=== PATIENT | female | born 1960 | race Hispanic/Latino ===

== ENCOUNTER → 2020-02-07 | Day surgery (SDC) | payer OTHER ==
[~2020-02-07] MED LIST: CALCIUM PO; FERROUS SULFAT325 M1 PO; LIDOCAINE HCL 2% LOCAL INJ 5 ML SDV VIAL INJ ONE; LISINOPRIL10 MG PO; OMEGA 3 1,0001 EACH PO; PROPOFOL IV EMULSION 10 MG/ML 20 ML VIAL ONE
[2020-02-07 07:46] VITALS: BP 108/59
== END | disposition home or self-care (01) ==
LOC: OR 05:57
PROVIDERS: ATTEND Internal Medicine Gastroenterology
DX: Z12.11 Encounter for screening for malignant neoplasm of colon (principal); K63.5 Polyp of colon; K29.50 Unspecified chronic gastritis without bleeding; I85.00 Esophageal varices without bleeding; K21.0 Gastro-esophageal reflux disease with esophagitis; K92.0 Hematemesis; K64.8 Other hemorrhoids; Z71.3 Dietary counseling and surveillance; E66.9 Obesity, unspecified; I10 Essential (primary) hypertension; E78.5 Hyperlipidemia, unspecified; M19.90 Unspecified osteoarthritis, unspecified site; Z01.810 Encounter for preprocedural cardiovascular examination; Z01.812 Encounter for preprocedural laboratory examination; Z68.33 Body mass index [BMI] 33.0-33.9, adult
CPT/HCPCS: 43239; 45380; 93005; J2001; J2704; U0002; 45378; 45384

== ENCOUNTER 2020-05-09 16:45 | Inpatient (IN) | payer OTHER ==
[~2020-05-09] VITALS: Ht 147.3 cm; Wt 74.1 kg
[~2020-05-09 16:45] MED LIST changes: -LIDOCAINE HCL 2% LOCAL INJ 5 ML SDV VIAL INJ ONE; -PROPOFOL IV EMULSION 10 MG/ML 20 ML VIAL ONE
[2020-05-09] MEDS ORDERED: ONDANSETRON HCL INJ 2MG/ML 2ML 2 MG/ML VIAL IV STA (17:20)
[2020-05-09] MEDS ORDERED: HYDROCHLOROTHIA25 MG (17:21)
[2020-05-09] MEDS ORDERED: ONDANSETRON HCL INJ 2MG/ML 2ML 2 MG/ML VIAL ONE (18:25)
[2020-05-09] MEDS ORDERED: PANTOPRAZOLE 40 MG 10ML VIAL IV STA (19:11)
[2020-05-09] MEDS ORDERED: PANTOPRAZOLE 40 MG 10ML VIAL ONE ×2 (19:35→22:17)
[2020-05-09 21:45] VITALS: BP 104/49
[2020-05-09 22:00] VITALS: BP 109/49
[2020-05-09] MEDS: SODIUM CHLORIDE 0.9% 1000ML 1,000 ML IV SCH (22:10)
[2020-05-09 23:18] VITALS: BP 109/49
[2020-05-10] VITALS (9 sets, daily range): BP systolic 92–129; BP diastolic 42–59
[2020-05-10] MEDS ORDERED: SODIUM CHLORIDE 0.9% 50ML 50 ML IV STA ×2 (00:11→05:16)
[2020-05-10] MEDS: PANTOPRAZOLE INJ 40 MG in SODIUM CHLORIDE 0.9% 50ML 50 ML IV SCH ×3 (00:19→05:27)
[2020-05-10] MEDS ORDERED: ACETAMINOPHEN 325 MG TAB PO PRN (02:15)
[2020-05-10] MEDS ORDERED: PLAQUENIL200 MG PO (02:42)
[2020-05-10] MEDS ORDERED: PANTOPRAZOLE 40 MG 10ML VIAL ONE (05:28)
[2020-05-10 06:38] LABS: BASOPHILS % 0.3 % (0.0-1.0); EOSINOPHILS # (AUTO) 0.2 (0.0-0.4); EOSINOPHILS % 2.5 % (0.0-6.0); LYMPHOCYTES # (AUTO) 2.3 (1.0-3.2); MEAN CORPUSCULAR HEMOGLOBIN 29.6 pg (28-32); MEAN CORPUSCULAR HGB CONC 32.3 g/dL (31-35); MEAN CORPUSCULAR VOLUME 91.6 fL (81-99); MONOCYTES # (AUTO) 0.5 (0.2-0.8); MONOCYTES % 8.3 % (4.4-11.3); NEUTROPHILS # (AUTO) 3.4 (2.1-6.9); NEUTROPHILS % 53.6 % (38.7-80.0); PLATELET COUNT 77 x10e3/uL (140-360); RED BLOOD COUNT 2.03 x10e6/uL (3.6-5.1); RED CELL DISTRIBUTION WIDTH 15.2 % (11.7-14.4)
[2020-05-10 06:53] LABS: HEMATOCRIT 18.6 % (34.2-44.1)
[2020-05-10 06:54] LABS: ANION GAP 8.8 mmol/L (8-16); BLOOD UREA NITROGEN 40 mg/dL (7-26); BUN/CREATININE RATIO 61 (6-25); CALCIUM 7.3 mg/dL (8.4-10.2); CARBON DIOXIDE 21 mmol/L (22-29); CHLORIDE 113 mmol/L (98-107); CREATININE, SERUM 0.66 mg/dL (0.57-1.11); EST GLOMERULAR FILTRATION RATE > 60 ML/MIN (60-); GLUCOSE 94 mg/dL (74-118); POTASSIUM 3.8 mmol/L (3.5-5.1); SODIUM 139 mmol/L (136-145)
[2020-05-10] MEDS ORDERED: SODIUM CHLORIDE 0.9% 250ML 250 ML IV ONE (11:30)
[2020-05-10] MEDS ORDERED: METRONIDAZOLE 500MG/NS 100ML 100 ML IV SCH (11:30)
[2020-05-10] MEDS: SODIUM CHLORIDE 0.9% 1000ML 1,000 ML IV SCH (11:40)
[2020-05-10] MEDS: PANTOPRAZOL 40MG/SOD CHL 0.9% 50 ML IV SCH ×2 (11:40→16:57)
[2020-05-10 12:12] LABS: THYROID STIMULATING HORMONE 0.775 uIU/mL (0.350-4.940)
[2020-05-10] MEDS: CEFTRIAXONE SOD 1 GM/NS 50 ML 50 ML IV SCH ×2 (12:15→21:43)
[2020-05-10] MEDS ORDERED: SODIUM CHLORIDE 0.9% 250ML 250 ML ONE ×3 (12:18→23:36)
[2020-05-10] MEDS: METRONIDAZOLE 500MG/NS 100ML 100 ML IV SCH ×2 (12:32→22:11)
[2020-05-10] MEDS: FUROSEMIDE INJ 10 MG/ML 2 ML VIAL IV PRN ×2 (16:57→21:52)
[2020-05-10] MEDS ORDERED: OCTREOTIDE ACETATE 0 ML ONE (23:25)
[2020-05-10] MEDS ORDERED: OCTREOTIDE ACETATE 2 ML ONE (23:26)
[2020-05-10] MEDS: OCTREOTIDE ACETATE 500 MCG in SODIUM CHLORIDE 0.9% 250ML 249 ML IV SCH (23:31)
[2020-05-11] VITALS (7 sets, daily range): BP systolic 101–122; BP diastolic 47–81
[2020-05-11] MEDS: SODIUM CHLORIDE 0.9% 1000ML 1,000 ML IV SCH ×2 (04:58→11:30)
[2020-05-11 06:08] LABS: BASOPHILS % 0.5 % (0.0-1.0); EOSINOPHILS # (AUTO) 0.2 (0.0-0.4); EOSINOPHILS % 4.4 % (0.0-6.0); HEMATOCRIT 26.5 % (34.2-44.1); HEMOGLOBIN 8.6 g/dL (12.0-16.0); LYMPHOCYTES # (AUTO) 1.4 (1.0-3.2); LYMPHOCYTES % 33.5 % (18.0-39.1); MEAN CORPUSCULAR HEMOGLOBIN 29.2 pg (28-32); MEAN CORPUSCULAR HGB CONC 32.5 g/dL (31-35); MEAN CORPUSCULAR VOLUME 89.8 fL (81-99); MONOCYTES # (AUTO) 0.4 (0.2-0.8); MONOCYTES % 8.9 % (4.4-11.3); NEUTROPHILS # (AUTO) 2.1 (2.1-6.9); NEUTROPHILS % 52.5 % (38.7-80.0); PLATELET COUNT 59 x10e3/uL (140-360); RED BLOOD COUNT 2.95 x10e6/uL (3.6-5.1)
[2020-05-11] MEDS: METRONIDAZOLE 500MG/NS 100ML 100 ML IV SCH ×3 (06:18→22:22)
[2020-05-11 07:00] LABS: ANION GAP 12.9 mmol/L (8-16); BLOOD UREA NITROGEN 18 mg/dL (7-26); BUN/CREATININE RATIO 26 (6-25); CALCIUM 7.8 mg/dL (8.4-10.2); CARBON DIOXIDE 21 mmol/L (22-29); CHLORIDE 110 mmol/L (98-107); EST GLOMERULAR FILTRATION RATE > 60 ML/MIN (60-); GLUCOSE 94 mg/dL (74-118); POTASSIUM 3.9 mmol/L (3.5-5.1); SODIUM 140 mmol/L (136-145)
[2020-05-11] MEDS: CEFTRIAXONE SOD 1 GM/NS 50 ML 50 ML IV SCH ×2 (08:19→21:14)
[2020-05-11] MEDS: PANTOPRAZOLE 40 MG 10ML VIAL IV SCH ×2 (08:19→17:18)
[2020-05-11] MEDS: OCTREOTIDE ACETATE 500 MCG in SODIUM CHLORIDE 0.9% 250ML 249 ML IV SCH (09:40)
[2020-05-11] MEDS ORDERED: MIDAZOLAM HCL 2 MG/2 ML VIAL ONE (12:48)
[2020-05-11] MEDS ORDERED: FENTANYL CITRATE/PF 100MCG/2 ML INJ ONE (12:48)
[2020-05-11] MEDS ORDERED: PROPOFOL IV EMULSION 10 MG/ML 20 ML VIAL ONE (19:21)
[2020-05-12] VITALS (8 sets, daily range): BP systolic 100–125; BP diastolic 52–67
[2020-05-12 04:58] LABS: BASOPHILS % 0.5 % (0.0-1.0); EOSINOPHILS # (AUTO) 0.2 (0.0-0.4); EOSINOPHILS % 6.1 % (0.0-6.0); HEMATOCRIT 25.4 % (34.2-44.1); HEMOGLOBIN 8.3 g/dL (12.0-16.0); LYMPHOCYTES # (AUTO) 1.3 (1.0-3.2); LYMPHOCYTES % 32.8 % (18.0-39.1); MEAN CORPUSCULAR HEMOGLOBIN 29.6 pg (28-32); MEAN CORPUSCULAR HGB CONC 32.7 g/dL (31-35); MEAN CORPUSCULAR VOLUME 90.7 fL (81-99); MONOCYTES # (AUTO) 0.3 (0.2-0.8); MONOCYTES % 7.4 % (4.4-11.3); NEUTROPHILS # (AUTO) 2.1 (2.1-6.9); NEUTROPHILS % 52.9 % (38.7-80.0); PLATELET COUNT 70 x10e3/uL (140-360)
[2020-05-12] MEDS: SODIUM CHLORIDE 0.9% 1000ML 1,000 ML IV SCH ×2 (05:01→14:33)
[2020-05-12] MEDS: METRONIDAZOLE 500MG/NS 100ML 100 ML IV SCH ×3 (05:38→22:11)
[2020-05-12] MEDS: PANTOPRAZOLE SOD 40 MG TABEC PO SCH (08:13)
[2020-05-12] MEDS: CEFTRIAXONE SOD 1 GM/NS 50 ML 50 ML IV SCH ×2 (08:13→21:27)
[2020-05-12 08:34] LABS: PLATELET ESTIMATE MARKEDLY DECREASED
[2020-05-12 08:35] LABS: PLATELET MORPHOLOGY COMMENT NORMAL
[2020-05-13] VITALS: BP 112/61
[2020-05-13 04:00] VITALS: BP 95/53
[2020-05-13] MEDS: SODIUM CHLORIDE 0.9% 1000ML 1,000 ML IV SCH (06:00)
[2020-05-13] MEDS: METRONIDAZOLE 500MG/NS 100ML 100 ML IV SCH ×3 (06:00→22:16)
[2020-05-13 07:38] VITALS: BP 142/74
[2020-05-13] MEDS: PANTOPRAZOLE SOD 40 MG TABEC PO SCH (08:04)
[2020-05-13] MEDS: CEFTRIAXONE SOD 1 GM/NS 50 ML 50 ML IV SCH ×2 (08:04→20:39)
[2020-05-13 10:32] LABS: HEMATOCRIT 27.4 % (34.2-44.1); HEMOGLOBIN 8.8 g/dL (12.0-16.0)
[2020-05-13 15:44] VITALS: BP 140/63
[2020-05-13 20:00] VITALS: BP 115/58
[2020-05-13 20:40] VITALS: BP 115/58
[2020-05-14] VITALS: BP 118/60
[2020-05-14 04:00] VITALS: BP 119/63
[2020-05-14 05:05] LABS: HEMATOCRIT 28.4 % (34.2-44.1); HEMOGLOBIN 9.1 g/dL (12.0-16.0)
[2020-05-14] MEDS: METRONIDAZOLE 500MG/NS 100ML 100 ML IV SCH (06:32)
[2020-05-14 08:44] VITALS: BP 121/54
[2020-05-14] MEDS: PANTOPRAZOLE SOD 40 MG TABEC PO SCH (09:00)
[2020-05-14] MEDS: CEFTRIAXONE SOD 1 GM/NS 50 ML 50 ML IV SCH (09:00)
[2020-05-14 09:01] VITALS: BP 121/54
[2020-05-14 11:23] VITALS: BP 117/66
== END 2020-05-14 11:32 | disposition home or self-care (01) | DRG 432 ==
LOC: FSED 16:50 → ERHOLD 19:29 → MED/SURG3 21:45 → IMCU 05-10 22:35
PROVIDERS: ADMIT Internal Medicine; ATTEND Internal Medicine
PROC: 30233N1 Transfusion of Nonautologous Red Blood Cells into Peripheral Vein, Percutaneous Approach (ICD-10-PCS; 2020-05-11)
PROC: 0DB78ZX Excision of Stomach, Pylorus, Via Natural or Artificial Opening Endoscopic, Diagnostic (ICD-10-PCS; principal; 2020-05-11 18:00)
DX: K74.60 Unspecified cirrhosis of liver (principal); K29.71 Gastritis, unspecified, with bleeding; K76.6 Portal hypertension; K55.9 Vascular disorder of intestine, unspecified; A09 Infectious gastroenteritis and colitis, unspecified; D62 Acute posthemorrhagic anemia; I85.10 Secondary esophageal varices without bleeding; K31.89 Other diseases of stomach and duodenum; D64.9 Anemia, unspecified; D69.6 Thrombocytopenia, unspecified; K46.9 Unspecified abdominal hernia without obstruction or gangrene; K44.9 Diaphragmatic hernia without obstruction or gangrene; K29.80 Duodenitis without bleeding; K22.2 Esophageal obstruction; M32.9 Systemic lupus erythematosus, unspecified; D50.9 Iron deficiency anemia, unspecified
CPT/HCPCS: 36415; 43239; 71046; 74176; 80048; 80076; 81003; 82270; 82607; 82746; 83540; 84443; 84466; 85014; 85018; 85025; 85045; 86850; 86900; 86920; 88305; 88312; 99284; J0696; J1940; J2250; J2353; J2405; J3010; J7030; J7050; P9016; U0002

== ENCOUNTER 2020-11-23 17:35 | Emergency (ER) | payer MEDICARE ==
[~2020-11-23] VITALS: Ht 147.3 cm; Wt 74.8 kg
[~2020-11-23 17:35] MED LIST changes: +HYDROCHLOROTHIA25 MG; +PLAQUENIL200 MG PO
[2020-11-23] MEDS ORDERED: ONDANSETRON HCL INJ 2MG/ML 2ML 2 MG/ML VIAL IV STA (18:20)
[2020-11-23] MEDS ORDERED: ONDANSETRON HCL INJ 2MG/ML 2ML 2 MG/ML VIAL ONE (18:34)
[2020-11-23 18:51] VITALS: BP 111/74
== END 2020-11-23 18:54 | disposition home or self-care (01) ==
LOC: FSED 17:55
DX: R53.1 Weakness (principal); R11.0 Nausea; D64.9 Anemia, unspecified; I10 Essential (primary) hypertension; M32.9 Systemic lupus erythematosus, unspecified; K74.60 Unspecified cirrhosis of liver; E66.9 Obesity, unspecified
CPT/HCPCS: 80048; 80076; 81003; 85025; 96374; 99284; J2405

== ENCOUNTER 2021-01-12 13:40 | Inpatient (IN) | payer OTHER ==
[~2021-01-12] VITALS: Ht 149.9 cm; Wt 74.5 kg
[2021-01-12] MEDS ORDERED: FAMOTIDINE20 MG PO (13:58)
[2021-01-12] MEDS ORDERED: VITAMIN C500 MG PO (13:58)
[2021-01-12] MEDS ORDERED: MULTI-VITAMIN1 EACH PO (13:58)
[2021-01-12] MEDS ORDERED: SODIUM CHLORIDE 0.9% 1000ML 1,000 ML IV STA (14:00)
[2021-01-12] MEDS ORDERED: CEFTRIAXONE 1 GM VIAL IV ONE (14:00)
[2021-01-12] MEDS ORDERED: CEFTRIAXONE 1 GM in SODIUM CHLORIDE 0.9% 50ML 50 ML IV ONE (14:15)
[2021-01-12] MEDS ORDERED: PHYTONADIONE 10 MG/ML AMP SC ONE (14:15)
[2021-01-12] MEDS ORDERED: OCTREOTIDE ACETATE 0.05 MG/ML AMP IV ONE ×2 (14:15→20:45)
[2021-01-12] MEDS ORDERED: ONDANSETRON HCL INJ 2MG/ML 2ML 2 MG/ML VIAL ONE (14:20)
[2021-01-12] MEDS: SODIUM CHLORIDE 0.9% 1000ML 1,000 ML IV SCH ×2 (14:20→17:45)
[2021-01-12] MEDS ORDERED: SODIUM CHLORIDE 0.9% 1000ML 1,000 ML ONE ×2 (14:20→15:43)
[2021-01-12] MEDS: ONDANSETRON HCL INJ 2MG/ML 2ML 2 MG/ML VIAL IV PRN ×2 (14:20→20:58)
[2021-01-12] MEDS ORDERED: CEFTRIAXONE 1 GM VIAL ONE (14:20)
[2021-01-12] MEDS ORDERED: OCTREOTIDE ACETATE 500 MCG in SODIUM CHLORIDE 0.9% 250ML 250 ML IV ONE (14:45)
[2021-01-12] MEDS ORDERED: PHYTONADIONE 10MG/ML 1 ML ONE (14:49)
[2021-01-12 15:41] LABS: HEMATOCRIT 29.4 % (34.2-44.1); HEMOGLOBIN 9.4 g/dL (12.0-16.0)
[2021-01-12] MEDS ORDERED: PROMETHAZINE HCL (IM) 25 MG/ML VIAL IM ONE (15:47)
[2021-01-12] MEDS ORDERED: PROMETHAZINE 12.5MG/ NACL 0.9% 12.5 MG/50 ML BAG IV ONE (16:00)
[2021-01-12 17:41] VITALS: BP 118/60
[2021-01-12 17:49] VITALS: BP 118/60
[2021-01-12 18:01] VITALS: BP 118/60
[2021-01-12 20:00] VITALS: BP 118/52
[2021-01-12 21:00] VITALS: BP 118/52
[2021-01-12] MEDS ORDERED: TRAMADOL HCL 50 MG TAB PO PRN (21:30)
[2021-01-12] MEDS: OCTREOTIDE ACETATE 500 MCG in SODIUM CHLORIDE 0.9% 250ML 250 ML IV SCH (21:30)
[2021-01-12] MEDS: Pantoprazole IV 40 MG in SODIUM CHLORIDE 0.9% 50ML 50 ML IV SCH (23:16)
[2021-01-13] VITALS (9 sets, daily range): BP systolic 106–119; BP diastolic 40–80
[2021-01-13] MEDS: Pantoprazole IV 40 MG in SODIUM CHLORIDE 0.9% 50ML 50 ML IV SCH ×3 (04:10→14:58)
[2021-01-13 06:33] LABS: BASOPHILS % 0.3 % (0.0-1.0); EOSINOPHILS # (AUTO) 0.1 (0.0-0.4); EOSINOPHILS % 3.4 % (0.0-6.0); HEMATOCRIT 24.3 % (34.2-44.1); LYMPHOCYTES # (AUTO) 1.3 (1.0-3.2); MEAN CORPUSCULAR HGB CONC 32.1 g/dL (31-35); MEAN CORPUSCULAR VOLUME 93.5 fL (81-99); MONOCYTES # (AUTO) 0.3 (0.2-0.8); MONOCYTES % 8.5 % (4.4-11.3); NEUTROPHILS # (AUTO) 2.1 (2.1-6.9); NEUTROPHILS % 54.5 % (38.7-80.0); PLATELET COUNT 56 x10e3/uL (140-360); RED CELL DISTRIBUTION WIDTH 14.6 % (11.7-14.4)
[2021-01-13 06:41] LABS: ALBUMIN 2.6 g/dL (3.5-5.0); ALBUMIN/GLOBULIN RATIO 1.2 (0.8-2.0); CALCIUM 7.1 mg/dL (8.4-10.2); CREATININE, SERUM 0.67 mg/dL (0.57-1.11)
[2021-01-13 06:50] LABS: HEMOGLOBIN 7.8 g/dL (12.0-16.0)
[2021-01-13] MEDS: SODIUM CHLORIDE 0.9% 1000ML 1,000 ML IV SCH ×2 (08:46→14:58)
[2021-01-13] MEDS: OCTREOTIDE ACETATE 500 MCG in SODIUM CHLORIDE 0.9% 250ML 250 ML IV SCH ×3 (10:46→22:02)
[2021-01-13] MEDS ORDERED: POVIDONE IODINE 0.05% 0.05 % ML PO ONE (13:24)
[2021-01-13] MEDS ORDERED: PROPOFOL IV EMULSION 10 MG/ML 20 ML VIAL ONE (13:24)
[2021-01-13] MEDS ORDERED: SODIUM CHLORIDE 0.9% 250ML 250 ML ONE (21:17)
[2021-01-13] MEDS ORDERED: OCTREOTIDE ACETATE 1 ML ONE (21:52)
[2021-01-14] VITALS (7 sets, daily range): BP systolic 82–127; BP diastolic 54–62
[2021-01-14] MEDS: OCTREOTIDE ACETATE 500 MCG in SODIUM CHLORIDE 0.9% 250ML 250 ML IV SCH ×2 (03:39→13:42)
[2021-01-14 06:24] LABS: HEMATOCRIT 24.7 % (34.2-44.1); HEMOGLOBIN 7.7 g/dL (12.0-16.0)
[2021-01-14] MEDS: PANTOPRAZOLE SOD 40 MG TABEC PO SCH ×2 (07:30→16:30)
[2021-01-14] MEDS ORDERED: ONDANSETRON HCL 4 MG ORAL DISINTEGRATING TAB PO PRN (08:15)
[2021-01-14] MEDS ORDERED: SODIUM CHLORIDE 0.9% 250ML 250 ML ONE (11:46)
[2021-01-14 12:36] LABS: HEMATOCRIT 25.5 % (34.2-44.1); HEMOGLOBIN 7.9 g/dL (12.0-16.0)
[2021-01-14] MEDS: SODIUM CHLORIDE 0.9% 1000ML 1,000 ML IV SCH (14:15)
[2021-01-14] MEDS ORDERED: PANTOPRAZOLE SO40 MG PO (18:03)
== END 2021-01-14 18:45 | disposition home or self-care (01) | DRG 441 ==
LOC: FSED 14:03 → ERHOLD 14:35 → MED/SURG2 16:52 → OBSVTOIN 21:19
PROVIDERS: ADMIT Internal Medicine; ATTEND Internal Medicine
PROC: 06L38CZ Occlusion of Esophageal Vein with Extraluminal Device, Via Natural or Artificial Opening Endoscopic (ICD-10-PCS; 2021-01-13)
PROC: 0DB68ZX Excision of Stomach, Via Natural or Artificial Opening Endoscopic, Diagnostic (ICD-10-PCS; principal; 2021-01-13 09:00)
DX: K76.6 Portal hypertension (principal); I85.11 Secondary esophageal varices with bleeding; D62 Acute posthemorrhagic anemia; K22.10 Ulcer of esophagus without bleeding; K75.81 Nonalcoholic steatohepatitis (NASH); K72.90 Hepatic failure, unspecified without coma; I10 Essential (primary) hypertension; K44.9 Diaphragmatic hernia without obstruction or gangrene
CPT/HCPCS: 36415; 43239; 80053; 81003; 82948; 85014; 85018; 85025; 85610; 86850; 86900; 86920; 88305; 88312; 96365; 96374; 99284; J0696; J2353; J2354; J2405; J2550; J3430; J7030; J7050

== ENCOUNTER 2021-03-06 02:16 | Inpatient (IN) | payer OTHER ==
[~2021-03-06] VITALS: Ht 149.9 cm; Wt 74.4 kg
[~2021-03-06 02:16] MED LIST changes: +FAMOTIDINE20 MG PO; +MULTI-VITAMIN1 EACH PO; +PANTOPRAZOLE SO40 MG PO; +VITAMIN C500 MG PO
[2021-03-06] MEDS ORDERED: ONDANSETRON HCL INJ 2MG/ML 2ML 2 MG/ML VIAL ONE ×2 (03:35→10:30)
[2021-03-06] MEDS ORDERED: SODIUM CHLORIDE 0.9% 250ML 250 ML ONE ×3 (06:22→11:16)
[2021-03-06] MEDS ORDERED: OCTREOTIDE ACETATE 1 ML ONE (08:47)
[2021-03-06] MEDS: OCTREOTIDE ACETATE 500 MCG in SODIUM CHLORIDE 0.9% 250ML 249 ML IV SCH ×2 (08:56→20:45)
[2021-03-06] MEDS: SODIUM CHLORIDE 0.9% 1000ML 1,000 ML IV SCH (08:56)
[2021-03-06 11:44] VITALS: BP 111/43
[2021-03-06 13:04] VITALS: BP 111/43
[2021-03-06] MEDS: ACETAMINOPHEN 325 MG TAB PO PRN (14:50)
[2021-03-06 15:21] VITALS: BP 107/48
[2021-03-06 20:00] VITALS: BP 107/49
[2021-03-07] VITALS (8 sets, daily range): BP systolic 100–133; BP diastolic 47–72
[2021-03-07] MEDS: SODIUM CHLORIDE 0.9% 1000ML 1,000 ML IV SCH ×3 (07:42→22:01)
[2021-03-07] MEDS: OCTREOTIDE ACETATE 500 MCG in SODIUM CHLORIDE 0.9% 250ML 249 ML IV SCH ×2 (07:43→18:40)
[2021-03-07] MEDS: Pantoprazole IV 40 MG in SODIUM CHLORIDE 0.9% 50ML 50 ML IV SCH ×2 (13:04→18:40)
[2021-03-07 18:13] LABS: BASOPHILS % 0.2 % (0.0-1.0); EOSINOPHILS # (AUTO) 0.2 (0.0-0.4); EOSINOPHILS % 3.9 % (0.0-6.0); HEMATOCRIT 32.4 % (34.2-44.1); HEMOGLOBIN 10.3 g/dL (12.0-16.0); LYMPHOCYTES # (AUTO) 0.8 (1.0-3.2); LYMPHOCYTES % 15.1 % (18.0-39.1); MEAN CORPUSCULAR HGB CONC 31.8 g/dL (31-35); MEAN CORPUSCULAR VOLUME 94.5 fL (81-99); MONOCYTES # (AUTO) 0.3 (0.2-0.8); MONOCYTES % 5.1 % (4.4-11.3); NEUTROPHILS # (AUTO) 3.8 (2.1-6.9); NEUTROPHILS % 75.1 % (38.7-80.0); RED BLOOD COUNT 3.43 x10e6/uL (3.6-5.1); RED CELL DISTRIBUTION WIDTH 15.9 % (11.7-14.4)
[2021-03-07 18:21] LABS: PLATELET COUNT 45 x10e3/uL (140-360)
[2021-03-07 18:27] LABS: ALBUMIN 3.1 g/dL (3.5-5.0); ALBUMIN/GLOBULIN RATIO 1.1 (0.8-2.0); ANION GAP 13.6 mmol/L (8-16); CALCIUM 7.8 mg/dL (8.4-10.2); CREATININE, SERUM 0.66 mg/dL (0.57-1.11); POTASSIUM 4.6 mmol/L (3.5-5.1)
[2021-03-08] VITALS (8 sets, daily range): BP systolic 109–123; BP diastolic 50–60
[2021-03-08] MEDS: Pantoprazole IV 40 MG in SODIUM CHLORIDE 0.9% 50ML 50 ML IV SCH ×6 (00:02→22:22)
[2021-03-08] MEDS: OCTREOTIDE ACETATE 500 MCG in SODIUM CHLORIDE 0.9% 250ML 249 ML IV SCH ×3 (04:48→19:48)
[2021-03-08 05:33] LABS: BASOPHILS % 0.5 % (0.0-1.0); EOSINOPHILS # (AUTO) 0.2 (0.0-0.4); EOSINOPHILS % 5.1 % (0.0-6.0); HEMOGLOBIN 9.7 g/dL (12.0-16.0); LYMPHOCYTES # (AUTO) 0.7 (1.0-3.2); LYMPHOCYTES % 16.1 % (18.0-39.1); MEAN CORPUSCULAR HEMOGLOBIN 30.1 pg (28-32); MEAN CORPUSCULAR HGB CONC 32.3 g/dL (31-35); MEAN CORPUSCULAR VOLUME 93.2 fL (81-99); MONOCYTES # (AUTO) 0.4 (0.2-0.8); MONOCYTES % 8.9 % (4.4-11.3); NEUTROPHILS % 69.2 % (38.7-80.0); PLATELET COUNT 54 x10e3/uL (140-360); RED BLOOD COUNT 3.22 x10e6/uL (3.6-5.1); RED CELL DISTRIBUTION WIDTH 15.4 % (11.7-14.4)
[2021-03-08 05:53] LABS: CALCIUM 7.7 mg/dL (8.4-10.2); CREATININE, SERUM 0.65 mg/dL (0.57-1.11)
[2021-03-08] MEDS: ACETAMINOPHEN 325 MG TAB PO PRN (08:08)
[2021-03-08] MEDS: SODIUM CHLORIDE 0.9% 1000ML 1,000 ML IV SCH (13:10)
[2021-03-09] VITALS: BP 130/62
[2021-03-09] MEDS: Pantoprazole IV 40 MG in SODIUM CHLORIDE 0.9% 50ML 50 ML IV SCH ×2 (02:39→08:48)
[2021-03-09 04:00] VITALS: BP 131/69
[2021-03-09] MEDS: SODIUM CHLORIDE 0.9% 1000ML 1,000 ML IV SCH (04:51)
[2021-03-09] MEDS: OCTREOTIDE ACETATE 500 MCG in SODIUM CHLORIDE 0.9% 250ML 249 ML IV SCH (04:52)
[2021-03-09 06:00] LABS: BASOPHILS % 0.3 % (0.0-1.0); EOSINOPHILS # (AUTO) 0.3 (0.0-0.4); EOSINOPHILS % 9.8 % (0.0-6.0); HEMATOCRIT 29.5 % (34.2-44.1); HEMOGLOBIN 9.6 g/dL (12.0-16.0); LYMPHOCYTES # (AUTO) 0.7 (1.0-3.2); LYMPHOCYTES % 21.4 % (18.0-39.1); MEAN CORPUSCULAR HEMOGLOBIN 30.4 pg (28-32); MEAN CORPUSCULAR HGB CONC 32.5 g/dL (31-35); MEAN CORPUSCULAR VOLUME 93.4 fL (81-99); MONOCYTES # (AUTO) 0.3 (0.2-0.8); MONOCYTES % 8.9 % (4.4-11.3); NEUTROPHILS % 59.3 % (38.7-80.0); PLATELET COUNT 60 x10e3/uL (140-360); RED BLOOD COUNT 3.16 x10e6/uL (3.6-5.1); RED CELL DISTRIBUTION WIDTH 15.1 % (11.7-14.4)
[2021-03-09 06:20] LABS: ALBUMIN 2.8 g/dL (3.5-5.0); ANION GAP 11.9 mmol/L (8-16); CALCIUM 7.4 mg/dL (8.4-10.2); CREATININE, SERUM 0.66 mg/dL (0.57-1.11); POTASSIUM 3.9 mmol/L (3.5-5.1)
[2021-03-09 07:07] VITALS: BP 120/64
[2021-03-09 07:08] VITALS: BP 120/64
[2021-03-09 11:19] VITALS: BP 137/70
== END 2021-03-09 12:33 | disposition home or self-care (01) | DRG 432 ==
LOC: FSED 06:25 → ERHOLD 06:35 → PACU V 10:38 → MED/SURG 11:00
PROC: 3E0G8GC Introduction of Other Therapeutic Substance into Upper GI, Via Natural or Artificial Opening Endoscopic (ICD-10-PCS; 2021-03-06)
PROC: 0DJ08ZZ Inspection of Upper Intestinal Tract, Via Natural or Artificial Opening Endoscopic (ICD-10-PCS; 2021-03-06)
PROC: 30233N1 Transfusion of Nonautologous Red Blood Cells into Peripheral Vein, Percutaneous Approach (ICD-10-PCS; 2021-03-06)
PROC: 06L38CZ Occlusion of Esophageal Vein with Extraluminal Device, Via Natural or Artificial Opening Endoscopic (ICD-10-PCS; principal; 2021-03-06 10:30)
DX: K74.60 Unspecified cirrhosis of liver (principal); K31.82 Dieulafoy lesion (hemorrhagic) of stomach and duodenum; I85.11 Secondary esophageal varices with bleeding; D62 Acute posthemorrhagic anemia; K76.6 Portal hypertension; D69.6 Thrombocytopenia, unspecified; I10 Essential (primary) hypertension; E78.5 Hyperlipidemia, unspecified; M32.9 Systemic lupus erythematosus, unspecified; Z20.822 Contact with and (suspected) exposure to COVID-19
CPT/HCPCS: 36415; 43239; 80048; 80053; 85025; 86850; 86900; 86920; 93005; 99284; J2353; J2405; J7030; J7050; P9016; U0002

== ENCOUNTER 2025-03-25 16:01 | Emergency (ER) | payer MEDICARE, OTHER ==
[~2025-03-25] VITALS: Ht 149.9 cm; Wt 74.4 kg
[2025-03-25 17:14] LABS: BASOPHILS % 0.3 % (0.0-1.0); EOSINOPHILS % 1.5 % (0.0-6.0); LYMPHOCYTES % 6.4 % (18.0-39.1); MONOCYTES % 6.0 % (4.4-11.3); NEUTROPHILS % 85.6 % (38.7-80.0); RED CELL DISTRIBUTION WIDTH 15.4 % (11.7-14.4)
[2025-03-25 17:27] LABS: INR 0.98
[2025-03-25 17:38] LABS: EST GLOMERULAR FILTRATION RATE 96.0 ML/MIN (>=60)
[2025-03-25] MEDS: ONDANSETRON HCL INJ 2MG/ML 2ML 2 MG/ML VIAL IV STA (17:51)
[2025-03-25] MEDS: SODIUM CHLORIDE 0.9% 1000ML 1,000 ML IV STA (17:51)
[2025-03-25 20:30] VITALS: PULSE 78; RESP 16; TEMP 98.2; O2SAT 98
[2025-03-25] MEDS ORDERED: IOPAMIDOL 370 MG/ML 100 ML INFUS..BTL INJ ONE (21:41)
== END 2025-03-25 20:42 | disposition home or self-care (01) ==
LOC: ER 16:51
DX: R10.13 Epigastric pain (principal); K74.60 Unspecified cirrhosis of liver; I10 Essential (primary) hypertension; M32.9 Systemic lupus erythematosus, unspecified
CPT/HCPCS: 36415; 71045; 74177; 80053; 83690; 83735; 84484; 85025; 85610; 85730; 93005; 99284; J2405; J2470; J7030; Q9967